=== PATIENT | female | born 1990 | race Caucasian/White ===

== ENCOUNTER 2018-09-21 04:41 | Emergency (ER) | payer SELFPAY ==
--- NOTE | 2018-09-21 04:48 | EDPHY ---
H & P Time Seen by Provider: 09/21/18 04:46 HPI/ROS: Chief Complaint: Alcohol intoxication HPI: 28-year-old woman was found at the broke her in after she walked into a stranger's room half dressed. Patient was there with her boyfriend. Patient admits to drinking multiple alcoholic beverages. On EMS arrival the patient was there with her boyfriend. He states that she had been with him all night. He observed her during multiple alcoholic beverages. Denies any other drug use. She denies any other drug use. Did not fall. Did not hit her head. No recent illness. She has been unable to ambulate for EMS. ROS: 10 systems were reviewed and were negative except those elements noted in the HPI. PMH: Denies Social History: Positive smoking, positive alcohol Family History: non-contributory Physical Exam: Gen: Awake, Alert, smells of alcohol, slurred speech HEENT: Nose: no rhinorrhea Eyes: PERRLA, EOMI Mouth: Moist mucosa Neck: Supple, no JVD Chest: nontender, lungs clear to auscultation Heart: S1, S2 normal, no murmur Abd: Soft, non-tender, no guarding Back: no CVA tenderness, no midline tenderness Ext: no edema, non-tender Skin: no rash Neuro: CN II-XII intact, Sensation grossly intact, Strength 5/5 in bilateral upper and lower extremities (Gennaro Pedraza) Constitutional: Initial Vital Signs Temperature (C) 36.5 C 09/21/18 04:46 Heart Rate 100 09/21/18 04:46 Respiratory Rate 18 09/21/18 04:46 Blood Pressure 123/84 H 09/21/18 04:46 O2 Sat (%) 95 09/21/18 04:46 O2 Delivery Mode Room Air Allergies/Adverse Reactions: Unable to Assess Allergy (Unverified 09/21/18 04:47) Home Medications: Medication Instructions Recorded Unobtainable 09/21/18 Medical Decision Making ED Course/Re-evaluation: Pt signed out to Dr Bullock pending ability to ambulate. (Gennaro Pedraza) Other Provider: I assumed care of the patient at 0700 The patient was observed in the emergency department and is now safely ambulatory. She is currently on a hold from the police department. [place] police have been contacted and will assume custody of the patient. (Adán Bullock) Departure - Departure Disposition: Home, Routine, Self-Care Clinical Impression: Alcoholic intoxication Condition: Good Instructions: Alcohol Intoxication (ED) Additional Instructions: 1. You have been given the [facility] for the [facility] if you desire assistance with alcohol dependence. Referrals: [facility] [Outside] - As per Instructions
[2018-09-21 06:46] VITALS: BP 122/64
== END 2018-09-21 07:53 | disposition home or self-care (01) ==
DX: F10.920 Alcohol use, unspecified with intoxication, uncomplicated (principal)